=== PATIENT | female | born 1990 | race Caucasian/White ===

== ENCOUNTER 2019-08-20 01:46 | Outpatient (CLI) | payer OTHER, MEDICAID ==
[~2019-08-20] VITALS: Ht 162.6 cm; Wt 83.6 kg
[2019-08-20 03:05] LABS: MICROSCOPIC NOT IND
[2019-08-20 03:18] LABS: BASOPHILS # (AUTO) 0.02 x10^3/uL (0-0.1); BASOPHILS % (AUTO) 0 % (0-1); EOSINOPHILS # (AUTO) 0.15 x10^3/uL (0-0.4); EOSINOPHILS % (AUTO) 1 % (1-7); LYMPHOCYTES # (AUTO) 1.25 x10^3/uL (1-3.4); LYMPHOCYTES % (AUTO) 10 % (22-44); MD NO; MEAN CORPUSCULAR HEMOGLOBIN 24.4 pg (27.0-34.8); MEAN CORPUSCULAR HGB CONC 31.9 g/dL (32.4-35.8); MEAN CORPUSCULAR VOLUME 76.3 fL (80-100); MEAN PLATELET VOLUME 9.6 fL (7.4-10.4); MONOCYTES # (AUTO) 0.89 x10^3/uL (0.2-0.8); MONOCYTES % (AUTO) 7 % (2-9); NEUTROPHILS % (AUTO) 81 % (42-75); PLATELET COUNT 315 x10^3/uL (130-400); RED BLOOD COUNT 4.38 x10^6/uL (3.82-5.3); RED CELL DISTRIBUTION WIDTH 15.1 % (9.6-15.2)
[2019-08-20 03:23] LABS: ALBUMIN 2.5 g/dL (3.4-5.0); ANION GAP 4 mmol/L (5-15); CALCIUM 8.1 mg/dL (8.5-10.1); CHLORIDE 111 mmol/L (98-107)
[2019-08-20 03:26] LABS: ALANINE AMINOTRANSFERASE 10 U/L (12-78); ALKALINE PHOSPHATASE 174 U/L (45-117); BILIRUBIN,TOTAL 0.3 mg/dL (0.2-1.0); CREATININE 0.73 mg/dL (0.55-1.02); TOTAL PROTEIN 6.4 g/dL (6.4-8.2)
[2019-08-20 03:27] LABS: BILIRUBIN, DIRECT < 0.1 mg/dL (0.1-0.2)
[2019-08-20] MEDS ORDERED: PREN-59 PO (04:04)
== END 2019-08-20 04:10 | disposition home or self-care (01) ==
LOC: LDOP 01:46
PROVIDERS: ATTEND Obstetrics & Gynecology
DX: O26.893 Other specified pregnancy related conditions, third trimester (principal); M79.89 Other specified soft tissue disorders; Z3A.34 34 weeks gestation of pregnancy
CPT/HCPCS: 36415; 59025; 80053; 81003; 82248; 82570; 84156; 84550; 85025; 99201; G0463

== ENCOUNTER 2019-08-24 18:46 | Outpatient (CLI) | payer OTHER, MEDICAID ==
[~2019-08-24] VITALS: Ht 162.6 cm; Wt 84.1 kg
[~2019-08-24 18:46] MED LIST: PREN-59 PO
[2019-08-24 18:59] VITALS: BP 117/64
== END 2019-08-24 20:00 | disposition home or self-care (01) ==
LOC: LDOP 18:46
PROVIDERS: ATTEND Obstetrics & Gynecology
DX: O42.913 Preterm premature rupture of membranes, unspecified as to length of time between rupture and onset of labor, third trimester (principal); Z3A.35 35 weeks gestation of pregnancy
CPT/HCPCS: 59025; 89060; 99211; G0463; Q0114

== ENCOUNTER 2019-09-24 05:21 | Inpatient (IN) | payer OTHER, MEDICAID ==
[~2019-09-24] VITALS: Ht 162.6 cm; Wt 86.4 kg
[2019-09-24 05:37] VITALS: BP 120/59
[2019-09-24] MEDS ORDERED: LACTATED RINGERS 1,000 ML IV SCH (05:49)
[2019-09-24] MEDS ORDERED: LACTATED RINGERS 1,000 ML IVBOLUS ONE (06:00)
[2019-09-24] MEDS ORDERED: SODIUM CITRATE/CITRIC ACID 30 ML UDC PO ONE (06:00)
[2019-09-24] MEDS ORDERED: CEFAZOLIN PMX 1GM/50ML 50 ML IVPB ONE (06:00)
[2019-09-24] MEDS ORDERED: METOCLOPRAMIDE 5 MG/ML, 2ML IV ONE (06:00)
[2019-09-24] MEDS ORDERED: OXYTOCIN 30U/ 0.9% NaCL 500ML 500 ML ONE (06:21)
[2019-09-24] MEDS ORDERED: METOCLOPRAMIDE 5 MG/ML, 2ML ONE (06:21)
[2019-09-24] MEDS ORDERED: SODIUM CITRATE/CITRIC ACID 30 ML UDC ONE (06:22)
[2019-09-24] MEDS ORDERED: NEWBORN KIT ONE (06:22)
[2019-09-24 06:28] LABS: BASOPHILS # (AUTO) 0.08 x10^3/uL (0-0.1); BASOPHILS % (AUTO) 1 % (0-1); EOSINOPHILS # (AUTO) 0.17 x10^3/uL (0-0.4); EOSINOPHILS % (AUTO) 1 % (1-7); LYMPHOCYTES # (AUTO) 1.45 x10^3/uL (1-3.4); LYMPHOCYTES % (AUTO) 12 % (22-44); MD NO; MEAN CORPUSCULAR HEMOGLOBIN 23.3 pg (27.0-34.8); MEAN CORPUSCULAR HGB CONC 32.1 g/dL (32.4-35.8); MEAN CORPUSCULAR VOLUME 72.4 fL (80-100); MEAN PLATELET VOLUME 9.5 fL (7.4-10.4); MONOCYTES # (AUTO) 0.87 x10^3/uL (0.2-0.8); MONOCYTES % (AUTO) 7 % (2-9); NEUTROPHILS # (AUTO) 9.47 x10^3/uL (1.8-6.8); NEUTROPHILS % (AUTO) 79 % (42-75); PLATELET COUNT 313 x10^3/uL (130-400); RED BLOOD COUNT 4.54 x10^6/uL (3.82-5.3); RED CELL DISTRIBUTION WIDTH 15.8 % (9.6-15.2)
[2019-09-24] MEDS ORDERED: morphine SULFATE/PF 0.5 MG/ML, 10ML ONE (07:21)
[2019-09-24] MEDS ORDERED: FENTANYL PF 100 MCG/2ML ONE (07:21)
[2019-09-24] MEDS ORDERED: DEXAMETHASONE 4 MG/ML, 1ML ONE (07:22)
[2019-09-24] MEDS ORDERED: KETOROLAC 30 MG/1 ML ONE ×2 (07:22)
[2019-09-24] MEDS ORDERED: CEFAZOLIN 1,000 MG ONE (07:22)
[2019-09-24] MEDS: LACTATED RINGERS 1,000 ML IV SCH ×5 (07:22→23:22)
[2019-09-24] MEDS ORDERED: OXYTOCIN 10 UNITS/ML, 1ML ONE ×2 (07:22)
[2019-09-24] MEDS ORDERED: ONDANSETRON 2MG/ML, 2ML ONE (07:22)
[2019-09-24] MEDS ORDERED: MISOPROSTOL 200 MCG TABLET PR PRN (07:30)
[2019-09-24] MEDS ORDERED: morphine SULFATE 10 MG/ML, 1ML IVPush PRN (07:30)
[2019-09-24] MEDS ORDERED: ONDANSETRON 2MG/ML, 2ML IV PRN (07:30)
[2019-09-24] MEDS ORDERED: OXYcodone/APAP 5/325MG TABLET PO PRN ×2 (07:30)
[2019-09-24] MEDS ORDERED: DIPH,PERTUSS(ACELL),TET VAC/PF NC IM-VACC PRN (07:30)
[2019-09-24] MEDS ORDERED: MEASLES,MUMPS&RUBELLA VACC/PF 0.5 ML SQ-VACC PRN (07:30)
[2019-09-24] MEDS ORDERED: CALCIUM CARBONATE 500 MG TAB.CHEW PO PRN (07:30)
[2019-09-24] MEDS ORDERED: ACETAMINOPHEN 325 MG TABLET PO PRN ×2 (07:30)
[2019-09-24] MEDS ORDERED: PHENYLEPHRINE 10 MG/ML ONE (08:04)
[2019-09-24] MEDS ORDERED: SODIUM CHLORIDE 0.9% PF 10ML ONE (08:04)
[2019-09-24] MEDS: PRENATAL VIT/IRON/FA 1 EACH TABLET PO SCH (09:00)
[2019-09-24] MEDS: OXYTOCIN 30U/ 0.9% NaCL 500ML 500 ML IV SCH ×2 (09:18→17:22)
[2019-09-24 10:40] VITALS: BP 113/71
[2019-09-24] MEDS: KETOROLAC 30 MG/1 ML IV SCH ×2 (14:15→19:58)
[2019-09-24 16:23] LABS: BASOPHILS # (AUTO) 0.01 x10^3/uL (0-0.1); BASOPHILS % (AUTO) 0 % (0-1); EOSINOPHILS # (AUTO) 0.17 x10^3/uL (0-0.4); EOSINOPHILS % (AUTO) 1 % (1-7); LYMPHOCYTES % (AUTO) 4 % (22-44); MD NO; MEAN CORPUSCULAR HEMOGLOBIN 23.2 pg (27.0-34.8); MEAN CORPUSCULAR HGB CONC 31.8 g/dL (32.4-35.8); MEAN CORPUSCULAR VOLUME 72.9 fL (80-100); MEAN PLATELET VOLUME 9.5 fL (7.4-10.4); MONOCYTES # (AUTO) 0.69 x10^3/uL (0.2-0.8); MONOCYTES % (AUTO) 4 % (2-9); NEUTROPHILS # (AUTO) 17.89 x10^3/uL (1.8-6.8); NEUTROPHILS % (AUTO) 92 % (42-75); PLATELET COUNT 313 x10^3/uL (130-400); RED BLOOD COUNT 4.64 x10^6/uL (3.82-5.3)
[2019-09-24 17:16] VITALS: BP 111/69
[2019-09-24] MEDS: DOCUSATE 100 MG CAPSULE PO PRN (19:58)
[2019-09-24] MEDS: SIMETHICONE 80 MG CHEW TAB PO PRN (19:58)
[2019-09-24 20:00] VITALS: BP 112/64
[2019-09-25 00:45] VITALS: BP 117/68
[2019-09-25] MEDS: KETOROLAC 30 MG/1 ML IV SCH ×3 (02:04→15:40)
[2019-09-25] MEDS: SIMETHICONE 80 MG CHEW TAB PO PRN (02:04)
[2019-09-25] MEDS: LACTATED RINGERS 1,000 ML IV SCH ×6 (03:22→23:22)
[2019-09-25] MEDS: OXYTOCIN 30U/ 0.9% NaCL 500ML 500 ML IV SCH ×3 (03:22→23:22)
[2019-09-25 04:45] VITALS: BP 108/69
[2019-09-25 07:05] VITALS: BP 105/68
[2019-09-25] MEDS: PRENATAL VIT/IRON/FA 1 EACH TABLET PO SCH (08:53)
[2019-09-25] MEDS: DOCUSATE 100 MG CAPSULE PO PRN ×2 (08:54→22:06)
[2019-09-25 20:20] VITALS: BP 117/71
[2019-09-25] MEDS: IBUPROFEN 600 MG TABLET PO PRN (22:05)
[2019-09-26] MEDS: IBUPROFEN 600 MG TABLET PO PRN (06:23)
[2019-09-26] MEDS: LACTATED RINGERS 1,000 ML IV SCH ×2 (07:22→09:22)
[2019-09-26] MEDS ORDERED: FLU VACC QS2019-20 36MOS UP/PF 0.5 ML IM-VACC ONE (07:30)
[2019-09-26 07:45] VITALS: BP 120/70
[2019-09-26] MEDS: PRENATAL VIT/IRON/FA 1 EACH TABLET PO SCH (09:00)
[2019-09-26] MEDS: OXYTOCIN 30U/ 0.9% NaCL 500ML 500 ML IV SCH (09:22)
[2019-09-26] MEDS ORDERED: OXYC-302 PO (09:41)
[2019-09-26] MEDS ORDERED: IBUP-1222 PO (09:41)
== END 2019-09-26 10:50 | disposition home or self-care (01) | DRG 788 ==
LOC: LDIP 05:21 → 2NW 10:04
PROVIDERS: ADMIT Obstetrics & Gynecology; ATTEND Obstetrics & Gynecology
PROC: 10D00Z1 Extraction of Products of Conception, Low, Open Approach (ICD-10-PCS; principal; 2019-09-24)
DX: O34.211 Maternal care for low transverse scar from previous cesarean delivery (principal); O69.81X0 Labor and delivery complicated by cord around neck, without compression, not applicable or unspecified; Z37.0 Single live birth; Z3A.39 39 weeks gestation of pregnancy
CPT/HCPCS: 36415; 82803; 85025; 86592; 86850; 86900; G0378; J0690; J1100; J1885; J2274; J2405; J3010; J2370; J2590; J2765; J7120